=== PATIENT | female | born 1955 | race Caucasian/White ===

== ENCOUNTER 2024-05-20 14:01 | Emergency (ER) | payer MEDICARE, BC ==
[~2024-05-20] VITALS: Ht 162.6 cm; Wt 83.4 kg
[2024-05-20 14:12] VITALS: BP 161/92; PULSE 77; RESP 18; O2SAT 99
[2024-05-20] MEDS: LIDOcaine 1% W/epiNEPHrine 1:100,000 20ml vial SQ STA (15:05)
[2024-05-20] MEDS ORDERED: FIOCOC PO (16:33)
[2024-05-20] MEDS ORDERED: CEPH-585 PO (16:33)
[2024-05-20] MEDS ORDERED: FLUC150T22 PO (16:33)
[2024-05-20 16:44] VITALS: TEMP 97.8
== END 2024-05-20 16:46 | disposition home or self-care (01) ==
LOC: ER 14:02
DX: S01.81XA Laceration without foreign body of other part of head, initial encounter (principal); W18.39XA Other fall on same level, initial encounter; Y93.89 Activity, other specified; Y92.89 Other specified places as the place of occurrence of the external cause; Y99.8 Other external cause status
CPT/HCPCS: 12011; 99283; A6402; J7030; Z7610; A6449